=== PATIENT | female | born 1975 | race Caucasian/White ===

== ENCOUNTER 2023-10-01 06:56 | Day surgery (SDC) | payer BC, MEDICAID ==
[~2023-10-01] VITALS: Ht 170.2 cm; Wt 109.8 kg
[2023-10-01 07:57] LABS: HCG,QUAL RESULT NEGATIVE (NEGATIVE)
[2023-10-01] MEDS ORDERED: LIDOCAINE MPF 2% 20 MG/1 ML, 5 ML VIAL INH ONE (08:48)
[2023-10-01] MEDS ORDERED: HYDROmorphone 1 MG/ML INJ. CARTRIDGE IVP PRN ×2 (09:15)
[2023-10-01] MEDS ORDERED: ONDANSETRON HCL 4 MG/2 ML VIAL IVP PRN (09:15)
[2023-10-01] MEDS ORDERED: MEPERIDINE HCL/PF 25 MG/ML DISP.SYRIN IVP PRN (09:15)
[2023-10-01 09:35] VITALS: O2SAT 98
[2023-10-01] MEDS ORDERED: NACL 0.9% 1,000 ML IV SCH (10:00)
[2023-10-01 10:45] VITALS: BP_SYST 115; PULSE 60; RESP 18; TEMP 97.4
== END 2023-10-01 11:15 | disposition home or self-care (01) ==
LOC: SGI 06:56 → SMU 06:58 → SGI 11:15
PROVIDERS: ATTEND Internal Medicine
DX: Z12.11 Encounter for screening for malignant neoplasm of colon (principal); K21.9 Gastro-esophageal reflux disease without esophagitis; K64.8 Other hemorrhoids; R12 Heartburn; G43.909 Migraine, unspecified, not intractable, without status migrainosus; J45.909 Unspecified asthma, uncomplicated; F32.A Depression, unspecified; Z91.018 Allergy to other foods; Z98.891 History of uterine scar from previous surgery; Z85.828 Personal history of other malignant neoplasm of skin; Z79.899 Other long term (current) drug therapy
CPT/HCPCS: 45378; 43239; 87081; 84703; 36415; G0378; J3465; J2704; J3010; J7030